=== PATIENT | female | born 1990 | race African-American/Black ===

== ENCOUNTER 2021-02-23 17:52 | Inpatient (IN) | payer OTHER ==
[2021-02-23 18:14] VITALS: BMI 30.1
[2021-02-23] MEDS ORDERED: SODIUM CHLORIDE 0.9% 500 ML INFUS.BAG IV ONE (19:34)
[2021-02-23 20:42] LABS: BASO % 0.8 % (0-2.0); HEMATOCRIT 34.3 % (32.4-45.2); HEMOGLOBIN 12.1 GM/dL (10.7-15.3); LYMPH % 14.5 % (8-40); MCH 30.9 pg (25.7-33.7); MCHC 35.4 g/dl (32.0-36.0); MEAN CELL VOLUME 87.4 fl (80-96); MEAN PLT VOLUME 9.3 fl (7.5-11.1); MONO % 8.2 % (3.8-10.2); NEUT % 74.5 % (42.8-82.8); PLATELET COUNT 55 10^3/uL (134-434); RBC 3.93 M/mm3 (3.60-5.2); RDW 15.2 % (11.6-15.6); WHITE BLOOD COUNT 13.4 K/mm3 (4.0-10.0)
[2021-02-23 20:50] LABS: EPI CELLS 17 /uL (0-25.1); HYALINE CASTS 1 /uL (0-3.1); URINE APPEARANCE CLEAR; URINE BACTERIA 877 /uL (0-1359); URINE BILIRUBIN NEGATIVE (NEGATIVE); URINE COLOR YELLOW; URINE GLUCOSE (UA) NEGATIVE (NEGATIVE); URINE KETONE NEGATIVE (NEGATIVE); URINE LEUK ESTERASE NEGATIVE (NEGATIVE); URINE NITRITE NEGATIVE (NEGATIVE); URINE PROTEIN 3+ (NEGATIVE); URINE RBC 17 /uL (0-23.9); URINE WBC 37 /uL (0-25.8)
[2021-02-23 21:18] LABS: ALBUMIN 2.5 g/dl (3.4-5.0); BLOOD UREA NITROGEN 8.1 mg/dL (7-18); CALCIUM 7.9 mg/dL (8.5-10.1)
[2021-02-23 21:21] LABS: CREATININE 0.9 mg/dL (0.55-1.3)
[2021-02-23 21:23] LABS: BILIRUBIN,TOTAL 0.9 mg/dL (0.2-1); TOT PROT 6.8 g/dl (6.4-8.2)
[2021-02-23 21:33] LABS: PLATELET ESTIMATE DECREASED
[2021-02-23] MEDS ORDERED: MAGNESIUM SULFATE 20GM/500ML - 20 GM/500 ML INFUS.BAG IVPB SCH (23:45)
[2021-02-23] MEDS ORDERED: MAGNESIUM 4GM/H20 - 4 GM/100 ML IVPB IVPB SCH (23:45)
[2021-02-23] MEDS ORDERED: DEXTROSE 5%-LACTATED RINGERS 1,000 ML IV SCH (23:45)
[2021-02-23] MEDS ORDERED: LABETALOL HCL 100 MG TABLET (FP) PO ONE (23:54)
[2021-02-24] MEDS ORDERED: LABETALOL HCL 5 MG/1 ML (100MG/20 ML VIAL) ONE (00:30)
[2021-02-24] MEDS ORDERED: LABETALOL HCL 5 MG/1 ML (100MG/20 ML VIAL) IVPUSH ONE ×2 (00:34→01:10)
[2021-02-24] MEDS ORDERED: BETAMET ACET/BETAMET NA PH 30 MG/5 ML VIAL IM ONE (00:35)
[2021-02-24 01:20] LABS: INR 0.87 (0.83-1.09); PROTHROMBIN TIME (PATIENT) 10.7 SEC (9.7-13.0)
[2021-02-24 01:23] LABS: ACTIVATED PTT 30.5 SECONDS (25.2-36.5)
[2021-02-24 02:53] LABS: HIV INTERPRETATION NEGATIVE (NEGATIVE)
[2021-02-24 03:08] VITALS: BP 134/91; PULSE 79; TEMP 98
== END 2021-02-24 01:45 | disposition short-term general hospital (02) | DRG 566 ==
LOC: JER 17:52 → JLDR 23:55
PROVIDERS: ADMIT Obstetrics & Gynecology; ATTEND Obstetrics & Gynecology
DX: O14.12 Severe pre-eclampsia, second trimester (principal); O14.22 HELLP syndrome (HELLP), second trimester; Z3A.23 23 weeks gestation of pregnancy
CPT/HCPCS: 36415; 76705-TC; 80053; 81003; 83690; 85025; 85610; 85730; 86762; 86780; 86850; 86900; 86901; 87340; 87389; 93005; 93010; 96372; 99285-25; C9803; U0003; U0005